=== PATIENT | male | born 1950 | race Caucasian/White ===

== ENCOUNTER 2018-06-10 16:45 | Emergency (ER) | payer MEDICARE, OTHER ==
[~2018-06-10] VITALS: Ht 170.2 cm; Wt 80.0 kg
[2018-06-10 16:51] VITALS: BP 132/73
[2018-06-10] MEDS ORDERED: CYCL-1 PO (17:30)
[2018-06-11] MEDS ORDERED: CYCL-1 PO (11:28)
== END 2018-06-10 17:40 | disposition home or self-care (01) ==
LOC: ER 16:48
DX: M54.5 Low back pain (principal); M62.830 Muscle spasm of back; V49.88XA Car occupant (driver) (passenger) injured in other specified transport accidents, initial encounter; Y93.89 Activity, other specified; Y92.413 State road as the place of occurrence of the external cause; Y99.9 Unspecified external cause status
CPT/HCPCS: 99283